=== PATIENT | male | born 1985 | race Caucasian/White ===

== ENCOUNTER 2022-08-05 10:48 | Emergency (ER) | payer BC ==
[~2022-08-05] VITALS: Ht 177.8 cm; Wt 104.3 kg
[~2022-08-05 10:48] MED LIST: MACROBID 100 M100 MG PO; PYRIDIUM200 MG PO
--- NOTE | 2022-08-06 16:15 | EKG ---
[facility] [address] [place], [place] [address] Signed Normal sinus rhythm Normal ECG No previous ECGs available Confirmed by SHANDA OSWALD MD ([id number] on 08/06/2022 4:15:29 PM Electronically Signed By: SHANAD OSWALD MD 08/06/22 1615 PATIENT NAME: JACEYREIDDEBORAH TURNER Electrocardiogram DATE OF : 83 PHYSICIAN: SHANDA OSWALD MD REPORT #: [id number] REPORT IS CONFIDENTIAL AND NOT TO BE RELEASED WITHOUT AUTHORIZATION
== END 2022-08-05 13:17 | disposition home or self-care (01) ==
LOC: ED 10:48
DX: R07.89 Other chest pain (principal); J45.909 Unspecified asthma, uncomplicated; Z87.891 Personal history of nicotine dependence; Z88.0 Allergy status to penicillin
CPT/HCPCS: 36415; 71045; 80053; 84484; 85025; 85379; 93005; 93010; 94640; 94664; 99285-25